=== PATIENT | female | born 1990 | race Caucasian/White ===

== ENCOUNTER → 2017-02-19 | Outpatient (REF) | payer BC ==
[2017-02-19 14:19] LABS: TOTAL PROTEIN 7.3 GM/DL (6.4-8.2)
[2017-02-19 14:21] LABS: FOLATE 15.3 NG/ML; VITAMIN B12 LEVEL 337 PG/ML
[2017-02-19 14:42] LABS: REASON FOR REVIEW COMPREHENSIVE REVIEW
[2017-02-19 14:45] LABS: ERYTHROCYTE SEDIMENTATION RATE 41 mm/hr (0-20)
[2017-02-20 10:46] LABS: ALBUMIN 4.27 GM/DL (3.29-5.55); ALBUMIN % 58.5 % (55.8-66.1); GAMMA GLOBULIN % 15.9 % (11.1-18.8)
== END ==
LOC: M LAB REF 13:19
PROVIDERS: ATTEND Internal Medicine Medical Oncology
DX: D64.9 Anemia, unspecified (principal)

== ENCOUNTER → 2017-09-11 | Outpatient (REF) | payer BC ==
[2017-09-11 14:38] LABS: ERYTHROCYTE SEDIMENTATION RATE 42 mm/hr (0-20)
== END ==
LOC: M LAB REF 13:05
DX: Z00.00 Encounter for general adult medical examination without abnormal findings (principal)
CPT/HCPCS: 85652